=== PATIENT | female | born 2000 | race Caucasian/White ===

== ENCOUNTER 2023-08-07 02:49 | Emergency (ER) | payer SELFPAY | END 2023-08-07 03:40 | disposition home or self-care (01) | LOC: FB.ED 02:49 | DX: S63.297A Dislocation of distal interphalangeal joint of left little finger, initial encounter (principal); F17.210 Nicotine dependence, cigarettes, uncomplicated; Z88.6 Allergy status to analgesic agent; Z88.8 Allergy status to other drugs, medicaments and biological substances; X58.XXXA Exposure to other specified factors, initial encounter | CPT/HCPCS: 26770; 73140-F4; 99283-25 ==